=== PATIENT | female | born 1970 | race American Indian/Alaskan Native ===

== ENCOUNTER 2017-11-04 08:09 | Day surgery (SDC) | payer MEDICARE ==
[2017-11-04] MEDS ORDERED: NACL 0.9% 1000 ML 1,000 ML ONE (08:24)
[2017-11-04] MEDS ORDERED: NACL 0.9% 1000 ML 1,000 ML IV SCH (09:30)
[2017-11-04] MEDS ORDERED: DIPRIVAN 10 MG/ML IV ONE ×2 (09:35)
[2017-11-04] MEDS ORDERED: VERSED ONE (09:35)
[2017-11-04] MEDS ORDERED: ZOFRAN ONE (09:35)
--- NOTE | 2017-11-04 09:41 | Anesthesia Day of Surgery ---
Anesthesia Day of Surgery - Day of Surgery Patient Examined: Yes Patient H&P Reviewed: Yes Patient is NPO: Yes Beta Blockers: No
--- NOTE | 2017-11-04 09:42 | Anesthesia Consultation ---
Anesthesia Consult and Med Hx - Airway Anesthetic Teeth Evaluation: Poor ROM Head & Neck: Adequate Mental/Hyoid Distance: Adequate Mallampati Class: Class IV Intubation Access Assessment: Possibly Difficult - Pulmonary Exam CTA: Yes - Cardiac Exam Cardiac Exam: No Murmur - Pre-Operative Health Status ASA Pre-Surgery Classification: ASA3 Proposed Anesthetic Plan: MAC - Pulmonary Hx Smoking: No Hx Asthma: Yes Hx Respiratory Symptoms: No SOB: No COPD: No Home Oxygen Therapy: No Hx Pneumonia: No Hx Sleep Apnea: Yes - Cardiovascular System Hx Hypertension: Yes Hx Coronary Artery Disease: No Hx Heart Attack/AMI: No Hx Angina: No Hx Percutaneous Transluminal Coronary Angioplasty (PTCA): No Hx Cardia Arrhythmia: No Hx Pacemaker: No Hx Internal Defibrillator: No Hx Peripheral Vascular Disease: No - Central Nervous System Hx Neuromuscular Disorder: No Hx Seizures: No CVA: No Hx Back Pain: No Hx Psychiatric Problems: No - Gastrointestinal Hx Ulcer: No Hx Gastroesophageal Reflux Disease: No - Endocrine Hx Renal Disease: No Hx End Stage Renal Disease: No Hx Cirrhosis: No Hx Liver Disease: No Hx Insulin Dependent Diabetes: No Hx Non-Insulin Dependent Diabetes: No Hx Thyroid Disease: No Hx Hypothyroidism: No Hx Hyperthyroidism: No - Hematic Hx Anemia: No Hx Sickle Cell Disease: No - Other Systems Hx Alcohol Use: No Hx Substance Use: No Hx Cancer: Yes Hx Obesity: No
[2017-11-04] MEDS ORDERED: XYLOCAINE MPF 2% ONE (10:00)
--- NOTE | 2017-11-04 10:16 | Short Stay Summary ---
Short Stay Documentation Date of service: 11/04/17 Narrative H&P: The patient presents for EGD for evaluation of GERD and colonoscopy for FH of colon cancer, mother in her 50s. - History Past Medical History: GERD, hyperthyroidism, other (morbid ovesity, asthma) Past Surgical History: Social history: no significant social history, no smoking, no alcohol abuse - Allergies and Medications Current Medications: Allergies No Known Allergies Allergy (Verified 11/04/17 08:56) Home Medications Medication Instructions Recorded Confirmed Last Taken Type Dimethyl Fumarate [Tecfidera] 240 mg PO BID 11/04/17 11/04/17 10/30/17 History Uhqov-Optqysf-Ngovzemj Tablet 1 tab PO DAILY 11/04/17 11/04/17 10/30/17 History RX: Cyclobenzaprine HCl [Flexeril 5 mg PO DAILY 11/04/17 11/04/17 10/30/17 History 5 MG TAB] RX: Gabapentin [Neurontin] 400 mg PO TID 11/04/17 11/04/17 10/30/17 History RX: Hydrochlorothiazide [HCTZ] 25 mg PO DAILY 11/04/17 11/04/17 10/30/17 History RX: Ranitidine HCl [Zantac 300 MG 300 mg PO HS 11/04/17 11/04/17 10/30/17 History TAB] RX: Sertraline [Zoloft] 100 mg PO BID 11/04/17 11/04/17 10/30/17 History RX: buPROPion SR [Wellbutrin SR] 100 mg PO BID 11/04/17 11/04/17 10/30/17 History RX: risperiDONE [RisperDAL] 3 mg PO HS 11/04/17 11/04/17 10/30/17 History Trazodone HCl 50 mg PO HS 11/04/17 11/04/17 10/30/17 History Vitamin B-12 500 mg PO DAILY 11/04/17 11/04/17 10/30/17 History Vitamin D3 2,000 unit 2,000 mcg PO DAILY 11/04/17 11/04/17 10/30/17 History Active Medications Sodium Chloride (Nacl 0.9% 1000 Ml) 1,000 mls @ 50 mls/hr IV DIRECT LUBNA - Physical exam General appearance: well-nourished, obese Integumentary: no rash, no growths, no abnormal pigmentation HEENT: PERRLA, EOMI, Mucous membr. moist/pink Lungs: Clear to auscultation, Normal air movement Breasts: deferred Heart: Regular rate, Normal S1, Normal S2, No murmurs Gastrointestinal: normoactive bowel sounds, no tenderness, no distended, no masses, no organomegaly, no hepatomegaly, no splenomegaly, obese Female Genitourinary: deferred Rectal Exam: normal exam-external/orifice, normal rectal tone, no mass Extremities: no ischemia, pulses intact, pulses symmetrical, No edema, normal temperature, normal color, Full ROM Neurological: Normal gait, Normal speech, Strength at 5/5 X4 ext, Normal tone, Sensation intact, Cranial nerves 3-12 NL - Brief post op/procedure progress note Date of procedure: 11/04/17 Findings: see dictated reports. Estimated blood loss: none Pathology: list (stomach antrum biopsies for h.pylori) Specimen disposition: to lab Condition: stable - Disposition Condition at discharge: Good Disposition: DC-01 TO HOME OR SELFCARE - Discharge Diagnoses (1) GERD (gastroesophageal reflux disease) Status: Acute (2) Family history of colon cancer in mother Status: Acute Short Stay Discharge Plan Activity: other (no driving for 24 hours) Weight Bearing Status: Weight Bear as Tolerated Diet: regular Follow up with: LISANDRA EARL MD [Primary Care Provider] - 7 Days
--- NOTE | 2017-11-04 10:22 | Operative Report ---
Operative Report Operative Report: Date of procedure: 11/04/2017 Procedure: Esophagogastroduodenoscopy with biopsies for H. pylori Preprocedure diagnosis: Esophageal reflux. Rule out Eubanks's. Post procedure diagnosis: Patchy gastritis with bile reflux. Endoscopist: Dr. Wyatt Anesthesia: Monitored anesthesia care per anesthesia department Medications: Propofol per anesthesia Estimated blood loss: 0 After careful discussion of the nature and purpose of the procedure as well as details the technique risks benefits and alternatives consent was obtained. The patient was placed in the left lateral decubitus position and medicated per anesthesia. The tip of the [employer] EQ 570 video scope was passed per orum under direct vision into the esophagus and advanced into the stomach and descending duodenum. The descending duodenum the duodenal bulb and pylorus were symmetrical and normal. The scope was withdrawn into the stomach and the stomach then gently insufflated with air. The antrum revealed patchy punctate erosions and erythema with retained bile. Biopsies were taken for H. pylori in the prepyloric area. The stomach was further insufflated and the scope was then retroflexed and partially withdrawn. The cardia, fundus, and body of the stomach were within normal limits and easily distensible.The scope was then withdrawn in the forward position. The esophagogastric junction was at 38 cm. The esophageal body was normal throughout. The procedure was was well tolerated and the patient was observed in recovery. Impressions: Mild gastritis with a few punctate erosions. Normal esophagus and duodenum. Plan: Await results of H. pylori biopsies. PPI therapy for reflux. The patient will call the office in 2 weeks for discussion. Electronically signed: Maxim Wyatt MD
--- NOTE | 2017-11-04 10:23 | Operative Report ---
Operative Report Operative Report: Date of procedure: 11/04/2017 Preprocedure diagnosis: Family history of early colon cancer, mother in her 50s. Post procedure diagnosis: Normal study Procedure: Colonoscopy to the cecum Endoscopist: Dr. Wyatt Anesthesia: Monitored anesthesia care per anesthesia department Estimated blood loss: 0 Medications: Monitored anesthesia care. See separate report by anesthesia for details. After careful discussion of the nature and purpose of the procedure as well as details of the technique risks benefits and alternatives the patient gave consent. Please see recent history and physical from the office. The patient was placed in the left lateral decubitus position and medicated per anesthesia. A rectal exam was performed sphincter tone was normal there were no masses palpable. The [employer] 570 scope was passed transanally and advanced under continuous direct vision without difficulty to the cecum. The colon was well prepared. The cecum was normal. The ascending colon was normal and on forward and retroflexed views. The transverse colon, descending colon, and sigmoid colon were normal. The rectum was normal on forward and retroflexed views. The procedure was well-tolerated overall and the patient was observed in recovery. Conclusions: Normal colonoscopy to the cecum. Plan: Repeat colonoscopy in 5 years. Signed electronically: Maxim Wyatt M.D.
[2017-11-04 10:34] VITALS: BP 121/71
--- NOTE | 2017-11-04 12:06 | Post Anesthesia Evaluation ---
- Post Anesthesia Evaluation Patient Participated: Yes Airway Patent: Yes Stable Respiratory Function: Yes Nausea/Vomiting: No Temp > 96.8F: Yes Pain Manageable: Yes Adequeate Hydration: Yes Anesthesia Complications: No
== END 2017-11-04 08:10 | disposition home or self-care (01) ==
LOC: GIO 08:09
PROVIDERS: ATTEND Internal Medicine Gastroenterology
DX: Z12.11 Encounter for screening for malignant neoplasm of colon (principal); K29.50 Unspecified chronic gastritis without bleeding; K21.9 Gastro-esophageal reflux disease without esophagitis; G47.30 Sleep apnea, unspecified; I10 Essential (primary) hypertension; E05.90 Thyrotoxicosis, unspecified without thyrotoxic crisis or storm; E66.01 Morbid (severe) obesity due to excess calories; J45.909 Unspecified asthma, uncomplicated; Z85.9 Personal history of malignant neoplasm, unspecified; Z80.0 Family history of malignant neoplasm of digestive organs; Z98.890 Other specified postprocedural states; Z79.899 Other long term (current) drug therapy
CPT/HCPCS: 43239; 45378; 88305; 88342; J2250; J2405; J2704; J7030

== ENCOUNTER 2018-09-23 06:50 | Day surgery (SDC) | payer MEDICARE ==
[2018-09-23] MEDS ORDERED: DIPRIVAN 10 MG/ML IV ONE (07:39)
--- NOTE | 2018-09-23 07:56 | Anesthesia Consultation ---
Anesthesia Consult and Med Hx Date of service: 09/23/18 - Airway Anesthetic Teeth Evaluation: Poor (missing bottom ) ROM Head & Neck: Adequate Mental/Hyoid Distance: Adequate Mallampati Class: Class III Intubation Access Assessment: Possibly Difficult - Pulmonary Exam CTA: Yes - Cardiac Exam Cardiac Exam: RRR - Pre-Operative Health Status ASA Pre-Surgery Classification: ASA3 Proposed Anesthetic Plan: MAC - Pulmonary Hx Asthma: Yes (last inhaler use > 1 year ago) Hx Sleep Apnea: Yes (Cpap) - Cardiovascular System Hx Hypertension: Yes - Central Nervous System Hx Back Pain: Yes - Gastrointestinal Hx Gastroesophageal Reflux Disease: Yes - Other Systems Hx Obesity: Yes (BMI 54)
--- NOTE | 2018-09-23 07:57 | Anesthesia Day of Surgery ---
Anesthesia Day of Surgery - Day of Surgery Patient Examined: Yes Patient H&P Reviewed: Yes Patient is NPO: Yes
[2018-09-23] MEDS ORDERED: WATER FOR IRRIG STERILE IR ONE (09:00)
[2018-09-23] MEDS ORDERED: NACL 0.9% 1000 ML 1,000 ML IV SCH (09:00)
[2018-09-23] MEDS ORDERED: VERSED ONE (09:02)
--- NOTE | 2018-09-23 09:38 | Operative Report ---
PREOPERATIVE DIAGNOSIS: Morbid obesity. POSTOPERATIVE DIAGNOSIS: Small hiatal hernia. PROCEDURE: Esophagogastroduodenoscopy. COMPLICATIONS: None. BLEEDING: None. SPECIMENS: None. INDICATIONS: The patient is a 48-year-old female with a history of morbid obesity. She is here for a preoperative EGD. Informed consent was obtained. DESCRIPTION OF PROCEDURE: The patient was brought to the GI suite where she was placed in the left lateral decubitus position and underwent MAC anesthesia. A bite block was placed and a timeout was called. A standard adult gastroscope was inserted through the oropharynx down the esophagus into the first portion of the duodenum. On retroflexion view, she was noted to have a very small hiatal hernia. There were no other abnormalities. With this, air was suctioned and the gastroscope was removed. The patient tolerated the procedure with no issues and was transferred to the PACU in stable condition. JOB# [id number] GUIDO/LINETTE
[2018-09-23 10:15] VITALS: BP 120/82
== END 2018-09-23 06:51 | disposition home or self-care (01) ==
LOC: GIO 06:50
PROVIDERS: ATTEND Specialist
DX: K30 Functional dyspepsia (principal); E66.01 Morbid (severe) obesity due to excess calories; K44.9 Diaphragmatic hernia without obstruction or gangrene; K21.9 Gastro-esophageal reflux disease without esophagitis; I10 Essential (primary) hypertension; J45.909 Unspecified asthma, uncomplicated; F32.9 Major depressive disorder, single episode, unspecified; G47.30 Sleep apnea, unspecified; Z98.51 Tubal ligation status; Z98.891 History of uterine scar from previous surgery; Z79.899 Other long term (current) drug therapy; Z80.0 Family history of malignant neoplasm of digestive organs; Z98.890 Other specified postprocedural states; Z90.49 Acquired absence of other specified parts of digestive tract; Z68.43 Body mass index [BMI] 50.0-59.9, adult
CPT/HCPCS: 43235; J2250; J2704; J7030